=== PATIENT | female | born 1955 | race Caucasian/White ===

== ENCOUNTER 2019-05-27 19:08 | Emergency (ER) | payer OTHER ==
[~2019-05-27] VITALS: Ht 170.2 cm; Wt 118.8 kg
[2019-05-27 19:43] LABS: ABSOLUTE NEUTROPHILS 5.8 thou/uL (1.4-8.2); BASOPHILS 0.7 % (0.0-2.0); EOSINOPHILS 4.2 % (0.0-3.0); HEMATOCRIT 24.7 % (37.0-47.0); HEMOGLOBIN 8.3 gm/dL (12.0-15.0); LYMPHOCYTES 14.5 % (24.0-44.0); MCH 29.2 pg (26.0-34.0); MCHC 33.6 g/dL (28.0-37.0); MCV 86.9 fL (80.0-100.0); MONOCYTES 7.2 % (1.0-8.0); PLATELET COUNT 181 thou/uL (150-400); POLYS 73.4 % (36.0-66.0); RBC 2.84 mil/uL (4.20-5.00); RDW 21.4 % (10.5-14.5); WBC 7.9 thou/uL (4.0-11.0)
[2019-05-27 19:48] LABS: CALCIUM 9.3 mg/dL (8.5-10.1); CREATININE 0.7 mg/dL (0.6-1.0); POTASSIUM 4.7 mmol/L (3.5-5.1)
[2019-05-27 19:54] LABS: ALBUMIN 1.9 g/dL (3.4-5.0); DIRECT BILIRUBIN 0.2 mg/dL (<0.1-0.3); TOTAL BILIRUBIN 0.4 mg/dL (<0.1-1.0); TOTAL PROTEIN 7.8 g/dL (6.4-8.2)
[2019-05-27 19:59] LABS: URINE BILIRUBIN NEGATIVE (Negative); URINE BLOOD 3+ (Negative); URINE CLARITY CLEAR; URINE COLOR YELLOW; URINE GLUCOSE-RANDOM* NEGATIVE (Negative); URINE KETONES NEGATIVE (Negative); URINE LEUKOCYTES-REFLEX 3+ (Negative); URINE NITRITE-REFLEX NEGATIVE (Negative); URINE PROTEIN (DIPSTICK) NEGATIVE (Negative); URINE SPECIFIC GRAVITY <= 1.005 (1.005-1.035); URINE UROBILINOGEN 0.2 E.U./dl (0.2-1.0)
[2019-05-27 20:08] LABS: AMORPHOUS PHOSPHATES Few /LPF (None Seen); BACTERIA-REFLEX >30 Many /HPF (None Seen); CASTS None Seen /LPF (None Seen); SQUAMOUS None Seen /LPF (0-3); URINE RBC 3-10 Few /HPF (0-2); YEAST-REFLEX Present (None Seen)
--- NOTE | 2019-05-27 20:38 | NUR ---
VASCULAR ACCESS CALLED TO ER FOR MIDLINE PLACEMENT. PT'S LABS,HISTORY REVIEWED. EVY CEPHALIC WAS WIDELY PATENT WITH USG. 4FR POWER MIDLINE TRIMMED TO 15CM INSERTED TO 3CM EXTERNAL PER HOSPITAL POLICY AND PROCEDURE. RELEASED FOR IMMEDIATE USE PER PROTOCOL TO [facility]MAN BRAXTON. WALLET CARD GIVEN TO SEND BACK TO SNF WITH PT.
[2019-05-27] MEDS ORDERED: LEVAQUIN 7750 MG/152 IV (22:17)
[2019-05-28 00:30] VITALS: BP 104/68
--- NOTE | 2019-05-29 01:37 | NUR ---
LAB CALLED WITH CRITICAL LAB RESULT AT THIS TIME. BLOOD CULTURE POSITIVE. GRAM POSTIVE COCCI. WILL NOTIFY PROVIDER ON SHIFT
== END 2019-05-28 00:30 | disposition home or self-care (01) ==
LOC: ER 19:08
PROVIDERS: Emergency Medicine
DX: J81.0 Acute pulmonary edema (principal); N39.0 Urinary tract infection, site not specified
CPT/HCPCS: 27000

== ENCOUNTER 2019-07-09 00:33 | Inpatient (IN) | payer OTHER ==
[2019-07-09] VITALS (68 sets, daily range): BP systolic 89–137; BP diastolic 31–81
[~2019-07-09] VITALS: Ht 170.2 cm; Wt 93.3 kg
--- NOTE | ~2019-07-09 | EMS ---
[facility] [address] [place] [address] EMS Patient Care Report Name: JACK BREWER Room #: PRE [place]#: [id number] Admission: Attend Phys: Discharge: Date of : 59 Report #: [id number] THIS REPORT FOR: //name// Report Transmitted: 07/09/2019 00:41 EMS Care Summary [facility] MED-ACT Incident [id number] @ 07/08/2019 23:47 Incident Location [address] [place] [address] Patient JACK BREWER Female, 63 Years 1955 Patient Address [address] [place] [address] Patient History Tracheostomy, Patient Allergies No known allergies, Patient Medications Lorazepam, Levothyroxine, Metoclopramide, Amiodarone, Diltiazem, Eliquis, Ferrous Sulfate, Sertraline, Chief Complaint Low Sodium Disposition Transported No Lights/[place] Reason Breathing Problem Transported To [facility] Narrative On EMS arrival, pt found lying semi fowlers in bed with a vent attached to her [address] [address] EMS Patient Care Report Name: JACK BREWER Room #: PRE Caitlin.#: [id number] Admission: Attend Phys: Discharge: Date of : 59 Report #: [id number] trach. Staff reports that the pt started to have altered mental status earlier this evening. They report that at that time they nai labs on the pt and had just received the results showing a critically low sodium. Staff also reports that the pt's blood pressure has been low. They report that the pt is normally responsive, however no one on scene can elaborate any further than that. They report that the pt has been in this state for approximately 2 hours at this time. When asked about the pt history there was no one available that knew any medical history of this pt. Pt moved from her bed to the cot via sheet drag. Pt removed from vent and moved to BVM via trach tube for respirations. Pt transported to ED room 6. Pt transferred to ED bed via sheet drag and placed back on a vent at the hospital. Pt left with rails up and staff in attendance. Initial Vitals @00:22P: 122,BP: 119/65,SpO2: 100,WV Suspected: false @00:15P: 122,R: 12,BP: 121/79,EtCO2: 40,SpO2: 100, @23:59P: 125,R: 12,BP: 121/65,Pain: 0/10,GCS: 3,Glucose: 138,SpO2: 95,Revised Trauma: 8, Assessments @23:58MENTAL:Unresponsive,SKIN:Diaphoresis,HEENT:Neck/Airway: Other,Head/Face: No Abnormalities,LUNG SOUNDS:ABDOMEN:PELVIS//GI:Pelvis GUOther,EXTREMITIES:PULSE:NEURO:No Abnormalities, Impression Altered Mental Status Procedures @00:10Oxygen FlowRate: 15 Device: Bag Valve Mask (BVM) Response: UnchangedSucceeded@00:2212-Lead ECG Timeline 23:47,Call Received 23:47,Psap Call 23:47,Dispatched 23:49,En Route 23:54,On Scene 23:57,At Patient 23:59,BP: 121/65 M,PULSE: 125,RR: 12 R,SPO2: 95 Ox,ETCO2: ,B,PAIN: 0,GCS: 3, 00:10,Oxygen FlowRate: 15 Device: Bag Valve Mask (BVM) Response: UnchangedSucceeded, 00:15,BP: 121/79 M,PULSE: 122,RR: 12 R,SPO2: 100 Ox,ETCO2: 40 ,BG: ,PAIN: ,GCS: [address] [address] EMS Patient Care Report Name: JACK BREWER Room #: [facility] M.R.#: [id number] Admission: Attend Phys: Discharge: Date of : 59 Report #: [id number] , 00:17,Depart Scene 00:22,12-Lead ECG, 00:22,BP: 119/65 M,PULSE: 122,RR: R,SPO2: 100 Ox,ETCO2: ,BG: ,PAIN: ,GCS: , 00:26,At Destination 01:00,Call Closed Disclaimer v1.1 Copyright 2019 [employer] This EMS Care Summary contains data elements from the applicable legal record (which may be displayed differently). It is designed to provide pertinent information for the following purposes: continuity of care, clinical quality, and state data reporting. The complete legal record is available to ED staff and administrators of the receiving hospital in [facility]'s Patient Tracker. All data is provided "as is."
[~2019-07-09 00:33] MED LIST: LEVAQUIN 7750 MG/152 IV
[2019-07-09 00:59] LABS: BE(vivo) -5.8 mmol/L (-2 to +3); PCO2 40.7 mmHg (35.0-45.0); PO2 149.6 mmHg (80.0-100.0); sO2 98.7 % (92.0-98.0)
[2019-07-09 01:00] LABS: pH 7.309 (7.360-7.450)
[2019-07-09 01:09] LABS: HEMOGLOBIN 6.9 gm/dL (12.0-15.0); MCH 28.1 pg (26.0-34.0)
[2019-07-09 01:10] LABS: HEMATOCRIT 20.9 % (37.0-47.0); MCV 85.1 fL (80.0-100.0); PLATELET COUNT 192 thou/uL (150-400); RBC 2.45 mil/uL (4.20-5.00); WBC 23.9 thou/uL (4.0-11.0)
[2019-07-09 01:13] LABS: URINE BILIRUBIN NEGATIVE (Negative); URINE BLOOD 3+ (Negative); URINE CLARITY CLOUDY; URINE COLOR RED; URINE GLUCOSE-RANDOM* NEGATIVE (Negative); URINE KETONES NEGATIVE (Negative); URINE NITRITE-REFLEX NEGATIVE (Negative); URINE PROTEIN (DIPSTICK) 2+ (Negative); URINE SPECIFIC GRAVITY <= 1.005 (1.005-1.035); URINE UROBILINOGEN 0.2 E.U./dl (0.2-1.0)
[2019-07-09 01:25] LABS: URINE LEUKOCYTES-REFLEX 3+ (Negative)
[2019-07-09 01:26] LABS: ALBUMIN 1.8 g/dL (3.4-5.0); CALCIUM 9.7 mg/dL (8.5-10.1); CREATININE 1.3 mg/dL (0.6-1.0); DIRECT BILIRUBIN 0.9 mg/dL (<0.1-0.3); MAGNESIUM 2.2 mg/dL (1.8-2.4); POTASSIUM 5.6 mmol/L (3.5-5.1); TOTAL BILIRUBIN 1.1 mg/dL (<0.1-1.0); TOTAL PROTEIN 7.6 g/dL (6.4-8.2); TROPONIN-I 0.18 ng/mL (<0.06)
[2019-07-09 01:41] LABS: BACTERIA-REFLEX 1-9 Few /HPF (None Seen); CASTS None Seen /LPF (None Seen); CRYSTALS None Seen /LPF (None Seen); SQUAMOUS 0-3 Few /LPF (0-3); URINE RBC >20 Many /HPF (0-2); WBC CLUMPS Few (None Seen)
[2019-07-09 02:40] LABS: ABSOLUTE NEUTROPHILS 22.7 thou/uL (1.4-8.2)
[2019-07-09 02:41] LABS: ANISOCYTOSIS 1+; PLATELET ESTIMATE NORMAL; POIKILOCYTOSIS 1+
--- NOTE | 2019-07-09 03:30 | NUR ---
ADMIT: Pt admitted to ICU room 238 from ED. Pt originally from [facility], vent dependent with PEG tube and chronic dye, midline in place from previous clinic visit in May. Pt very lethargic, opens eyes and withdraws slightly to noxious stimuli. Monitor a-fib with RVR rates 90-130's. Breath sounds extremely coarse throughout all gross, suctioning thick yellow sputum. Area of breakdown on left heel with eschar and area of possible yeast rash on buttocks. Sat 100% on FiO2 50%.
[2019-07-09 03:31] LABS: % SATURATION 4 % (20-39); IRON 12 ug/dL (50-170); TIBC 295 ug/dL (250-450)
--- NOTE | 2019-07-09 07:26 | EKG ---
[address] [place] [address] ELECTROCARDIOGRAM REPORT Name: JACK BREWER Room #: 238-P ADM IN M.R.#: [id number] Admission: 07/09/19 Attend Phys: Vinod Lopez MD Discharge: Date of : 59 Report #: [id number] THIS REPORT FOR: //name// [facility] ED Test Date: 2019-07-09 Test Time: 00:44:56 Pat Name: JACK BREWER Department: Room: 238 Gender: F Contracts Representative: DEEJAY : 1955 Requested By: Jose Miguel Lawrence Order Number: [id number] MD: Rodrigo Ball Measurements Intervals [place] Rate: 115 P: RI: QRS: -3 QRSD: 107 T: 170 QT: 314 QTc: 435 Interpretive Statements Atrial flutter with variable AV block Poor R wave progression Nonspecific ST and T wave abnormality No previous ECG available for comparison Electronically Signed On 07-09-2019 7:26:18 CDT by Rodrigo Ball [email or web address] <ELECTRONICALLY SIGNED> By: Rodrigo Ball MD, [facility] 07/09/19 0726 D: 0943 Rodrigo Ball MD, FACC /EPI
--- NOTE | 2019-07-09 09:22 | 2DMMODE ---
[facility] [address] [place] [address] 2 D/M-MODE ECHOCARDIOGRAM Name: JACK BREWER Room #: 238-P [facility] IN ..#: [id number] Admission: 07/09/19 Attend Phys: Vinod Lopez MD Discharge: Date of : 59 Report #: [id number] THIS REPORT FOR: //name// APPROVED REPORT Study performed: 07/09/2019 07:58:07 EXAM: Comprehensive 2D, Doppler, and color-flow Echocardiogram Patient Location: ICU Room #: [facility] Status: routine BSA: 2.17 HR: 135 bpm BP: 129/62 mmHg Rhythm: Tachycardia Other Information Study Quality: Adequate Technically limited study due to inability to position patient, patient on ventilator. Indications Congestive Heart Failure Diabetes Atrial Fibrillation Hypertension/HDD 2D Dimensions RVDd: 30.15 mm IVSd: 10.89 (7-11mm) LVOT Diam: 20.23 (18-24mm) LVDd: 45.37 mm PWd: 9.51 (7-11mm) Ascending Ao: 29.81 (22-36mm) LVDs: 37.12 (25-40mm) Aortic Root: 32.26 mm IVC: 18.00 mm Volumes Left Atrial Volume (Systole) Single Plane 4CH: 33.18 mL Single Plane 2CH: 59.84 mL LA ESV Index: 22.00 mL/m2 Aortic Valve AoV Peak Luis E.: 1.88 m/s AO Peak Gr.: 14.14 mmHg LVOT Max P.76 mmHg LVOT Max V: 1.30 m/s ABDIRASHID Vmax: 2.22 cm2 [facility] [address] [place] [address] 2 D/M-MODE ECHOCARDIOGRAM Name: JACK BREWER Room #: 238-P ADM IN [facility]#: [id number] Admission: 07/09/19 Attend Phys: Vinod Lopez MD Discharge: Date of : 59 Report #: [id number] Mitral Valve MV Decel. Time: 157.53 ms MV E Max Luis E.: 1.17 m/s IVRT: 99.19 ms Pulmonary Valve PV Peak Luis E.: 1.17 m/s PV Peak Gr.: 5.44 mmHg Tricuspid Valve TR Peak Luis E.: 2.74 m/s RAP Estimate: 10.00 mmHg TR Peak Gr.: 29.94 mmHg PA Pressure: 40.00 mmHg Left Ventricle The left ventricle is normal size. There is global hypokinesis of the left ventricle. There is normal left ventricular wall thickness. Left ventricular systolic function is moderately decreased. LVEF is 35-40%. This study is not technically sufficient to allow evaluation of the LV diastolic function. Right Ventricle The right ventricle is normal size. Right ventricle is mildly hypokinetic. Atria The left atrium size is normal. Right atrium is at the upper limits of normal. Aortic Valve Mild aortic valve sclerosis, trileaflet. No aortic regurgitation is present. There is no aortic valvular stenosis. Mitral Valve Mitral valve leaflets are mildly thickened. Moderate mitral regurgitation No evidence of mitral valve stenosis. Tricuspid Valve The tricuspid valve is normal in structure. Trace tricuspid regurgitation. PAP is estimated at 40 mmHg. Pulmonic Valve The pulmonary valve is normal in structure. There is no pulmonic valvular regurgitation. Great Vessels [facility] [address] [place] [address] 2 D/M-MODE ECHOCARDIOGRAM Name: JACK BREWER Room #: 238- ADM IN M.R.#: [id number] Admission: 07/09/19 Attend Phys: Vinod Lopez MD Discharge: Date of : 59 Report #: [id number] The aortic root is normal in size. IVC is normal in size and collapses <50% with inspiration. Pericardium There is no pericardial effusion. Small to moderate left sided pleural effusion noted. <Conclusion> Left ventricular systolic function is moderately decreased. There is global hypokinesis of the left ventricle. LVEF is 35-40%. Mild aortic valve sclerosis, trileaflet. No aortic regurgitation or stenosis Mitral valve leaflets are mildly thickened. Moderate mitral regurgitation Trace tricuspid regurgitation. Pulmonary artery pressure estimated at 40 mmHg. There is no pericardial effusion. <ELECTRONICALLY SIGNED> By: Rodrigo Ball MD, [facility] 07/09/19921 1 1 Rodrigo Ball MD, [facility] /INF
[2019-07-09 09:45] LABS: URINE BLOOD 3+ (Negative); URINE CLARITY TURBID; URINE COLOR RED; URINE GLUCOSE-RANDOM* NEGATIVE (Negative); URINE KETONES TRACE (Negative); URINE LEUKOCYTES 3+ (Negative); URINE NITRITE POSITIVE (Negative); URINE PROTEIN (DIPSTICK) 3+ (Negative)
[2019-07-09 09:46] LABS: ICTOTEST (BILI CONFIRMATORY) Negative (Negative); URINE BILIRUBIN NEGATIVE (Negative); URINE RBC >20 Many /HPF (0-2)
[2019-07-09 09:47] LABS: AMORPHOUS URATES Few /LPF (None Seen); BACTERIA 1-9 Few /HPF (None Seen); CASTS None Seen /LPF (None Seen); SQUAMOUS None Seen /LPF (0-3)
[2019-07-09 10:04] LABS: URINE PROTEIN-RANDOM* 1084.3 mg/dL (<11.9)
--- NOTE | 2019-07-09 10:16 | NUR ---
Nutrition: Pts usual regimen if Glucerna 1.2 at 55 mL/hr. Considering hyperkalemia, REC use of Nepro formula at 35 mL/hr goal rate for now. When labs stabilize, will re-evaluate formula choice to best meet needs.
--- NOTE | 2019-07-09 11:35 | NUR ---
WOUND CARE CONSULT; ASSESSMENT COMPLETED WITH STAFF NURSE. THE LEFT HEEL IS COVERED WITH A HARD COVERING; ESCHAR VS CALLOUS/OLD BLISTERED AREA WHICH IS STABLE AT THIS TIME. THE BILATERAL BUTTOCKS AND PERINEAL/PERIRECTAL AREAS HAVE S/S CONSISTANT WITH A FUNGAL RASH VS PRESSURE. ALL THE TISSUE IS BLANCHABLE. NO DRAINAGE. THE PATIENT IS CURRENTLY USING NYSTATIN PER REVIEW RN. RECOMMENDATIONS; 1-LEFT HEEL PAINT WITH BETADINE DAILY. 2-BILATERAL BUTTOCKS APPLIANCE SERVICE REPRESENTATIVE;USE INTERDRY TO SKIN FOLDS DAILY. RN PRESENT
--- NOTE | 2019-07-09 13:13 | NUR ---
CONSULTED TO PLACE A PICC FOR A PATIENT NEEDING ADDITIONAL ACCESS. ORDER NOTED. STAFF UNABLE TO REACH FAMILY AND LINE NEEDED ASASP. MEDICAL NECESSITY. A #5F TRIPLE LUMEN PICC ATTEMPTED PER HOSPITAL POLICY AFTER A BEDSIDE TIMEOUT WAS COMPLETE. RIGHT CEPHALIC DEEP AND HARD TO VISUALIZE. AFTER LIDOCAINE SQ THE VEIN VASOSPASMED AND UNABLE TO ADVANCE LINE. DISCUSSED IJ PLACEMENT WITH THE LANDFILL ATTENDANT- A NEW STERILE KIT OBTAINED AND A #6F TRIPLE LUMEN POWER INJECTABLE JACC CENTRAL LINE WAS PLACED IN THE LEFT JUGULAR VEIN PER HOSPITAL POLICY. LINE WAS 25CM / ADVANCED TO 20CM. A STAT CHEST XRAY - LINE CONFIRMED AND RELEASED FOR USE
[2019-07-09 16:00] LABS: CALCIUM 9.4 mg/dL (8.5-10.1); CREATININE 1.2 mg/dL (0.6-1.0); POTASSIUM 4.9 mmol/L (3.5-5.1)
[2019-07-09 16:04] LABS: ALBUMIN 1.6 g/dL (3.4-5.0); PHOSPHORUS 3.2 mg/dL (2.5-4.9)
--- NOTE | 2019-07-09 16:41 | EKG ---
[address] [address] ELECTROCARDIOGRAM REPORT Name: JACK BREWER Room #: 238-P ADM IN M.R.#: [id number] Admission: 07/09/19 Attend Phys: Vinod Lopez MD Discharge: Date of : 59 Report #: [id number] THIS REPORT FOR: //name// [facility] Test Date: 2019-07-09 Test Time: 09:05:45 Pat Name: JACK BREWER Department: Room: 238 Gender: F Manager Art: GWEN : 1955 Requested By: Angelika Brooks Order Number: [id number] MD: Bebeto De Paz Measurements Intervals Street Rate: 132 P: 123 ND: 127 QRS: 31 QRSD: 102 T: 125 QT: 289 QTc: 428 Interpretive Statements Atrial flutter. Nonspecific repol abnormality, lateral leads Compared to ECG 07/09/2019 00:44:56 Electronically Signed On 07-09-2019 16:41:38 CDT by Bebeto De Paz [email or web address] <ELECTRONICALLY SIGNED> By: Bebeto De Paz MD 07/09/19 1641 4 4 Bebeto De Paz MD /DANISH
--- NOTE | 2019-07-09 16:44 | NUR ---
Chart reviewed and case discussed with the care team. Pt is currently in the ICU. She is not responsive. She is a chronic vent patient that was transfered to [facility] from [facility] as she was not weanable. Very limited history is available. Message left for the [facility] socialworker, Yolie. Nursing has attempted x three to reach her son and only noted next of kin Osman. They have left three seperate messages on his voicemail to contact the hospital. [place] plan at this time is [place].The [facility] liason will be by tomorrow to get an update. Me associate merchandise planner has faxed them her admission h/p. Will follow.
--- NOTE | 2019-07-09 16:48 | NUR ---
PT IS FROM [facility] FAXED H/P TO FACILITY SPOKE WITH VILMA IN ADM SHE RECEIVED UPDATE. DCP TO FOLLOW.
--- NOTE | 2019-07-09 17:01 | NUR ---
ASSUMED CARE AT 0700, PATIENT UNRESPONSIVE WITH GCS OF 6. PATIENT DOES GRIMICE TO PAINFUL STIMULI. PATIENT IN AFIB RVR THIS AM, CARDIOLOGY IS AWARE AND DID GIVE ME ORDERS TO START AMIO DRIP WITH BOLUS TO BE GIVEN. NO RESPONSE TO THE AMIO WITH RATES STILL IN THE 130'S. DR ORTEGA NOTIFIED AND ORDER FOR IV LOPRESSOR RECIEVED. PATIENT HAD A SLIGHT RESPONSE TO THAT DROPPING HER HR TO THE 1TEENS TO 120'S. BP STABLE. TRIED TO CONTACT PATIENTS SON MULTIPLE TIMES TO GET CONSENTS SIGNED FOR CENTRAL LINE PLACEMENT I WAS ONLY ABLE TO REACH SONS VOICEMAIL. 2 MESSAGES LEFT WITH NO CALL BACK. DRESSING PLACED TO PATIENT LEFT HEEL PER DR CARMONA. NO FURTHER QUESTIONS AT THIS TIME. WILL CONTINUE TO MONITOR AND CARE PER PLAN OF CARE.
[2019-07-10] VITALS (39 sets, daily range): BP systolic 96–145; BP diastolic 53–95
[2019-07-10 05:02] LABS: HCO3 21.2 mmol/L (22.0-26.0); PCO2 44.7 mmHg (35.0-45.0); sO2 56.9 % (92.0-98.0)
[2019-07-10 05:04] LABS: PO2 33.1 mmHg (80.0-100.0); pH 7.294 (7.360-7.450)
[2019-07-10 05:30] LABS: MCH 27.9 pg (26.0-34.0); MCHC 33.2 g/dL (28.0-37.0); MCV 84.1 fL (80.0-100.0); RBC 2.08 mil/uL (4.20-5.00); RDW 17.2 % (10.5-14.5); WBC 11.2 thou/uL (4.0-11.0)
[2019-07-10 05:31] LABS: BE(vivo) -2.2 mmol/L (-2 to +3); HCO3 21.3 mmol/L (22.0-26.0); PCO2 30.8 mmHg (35.0-45.0); pH 7.458 (7.360-7.450); sO2 99.2 % (92.0-98.0)
[2019-07-10 05:56] LABS: HEMOGLOBIN 5.8 gm/dL (12.0-15.0)
[2019-07-10 05:57] LABS: HEMATOCRIT 17.5 % (37.0-47.0)
[2019-07-10 06:13] LABS: ALBUMIN 1.5 g/dL (3.4-5.0); CALCIUM 9.1 mg/dL (8.5-10.1); CREATININE 1.1 mg/dL (0.6-1.0); PHOSPHORUS 3.6 mg/dL (2.5-4.9)
--- NOTE | 2019-07-10 08:35 | HC ---
[facility] [place] [address] CONSULTATION Name: JACK BREWER Room #: 238-P ADM IN M.R.#: [id number] Admission: 07/09/19 Attend Phys: Vinod Lopez MD Discharge: Date of : 59 Report #: [id number] THIS REPORT FOR: //name// CC: Vinod Carreon DATE OF SERVICE: 07/09/2019 REASON FOR CONSULTATION: Hyponatremia and hyperkalemia. REASON FOR PRESENTATION: Altered mental status. HISTORY OF PRESENT ILLNESS: Those were obtained from the medical records as the patient is not able to provide me with any history at present. She is a resident of an LTAC facility. She had previous history of chronic respiratory failure, maintained on the vent. She is also known to have AFib, hypothyroidism, hypertension, history of heart failure with unknown ejection fraction. She has muscular dystrophy. She receives her nutrition through the PEG tube. Nursing facility staff reported decreased level of consciousness. Laboratory values were obtained on the patient and those revealed that the patient has hyponatremia and hyperkalemia. Most recently, the labs from the revealed a sodium value of 114 and a potassium value of 5.8. Prior to that and on 06/24/2019, her potassium was 5.4 and her sodium was 135. The patient's white blood cell counts from yesterday were elevated at 28,000. The patient was transferred to our facility to further evaluate. I am being consulted to manage her electrolyte issues. PAST MEDICAL HISTORY: Obtained from the medical charts include the followin. Chronic respiratory failure, maintained on the vent. 2. Tracheostomy. 3. Diabetes mellitus. 4. Atrial fibrillation, maintained on Eliquis. 5. Hypertension. 6. Hypothyroidism. 7. Status post cholecystectomy. 8. Status post PEG tube. 9. Status post tracheostomy. SOCIAL HISTORY: She is a resident of an LTAC facility. Unable to verify alcohol or substance abuse. FAMILY HISTORY: Unable to obtain given the patient's mental status. REVIEW OF SYSTEMS: Unable to obtain given the patient's mental status. MEDICATIONS: Currently, the patient is maintained on amiodarone, vancomycin and [facility] [address] [place] [address] CONSULTATION Name: JACK BREWER Room #: 238-P ADM IN [facility].#: [id number] Admission: 07/09/19 Attend Phys: Vinod Lopez MD Discharge: Date of : 59 Report #: [id number] Zosyn. ALLERGIES: None. PHYSICAL EXAMINATION: VITAL SIGNS: She is tachycardic on the vent. Pulse is 135. Blood pressure is 117/56. HEAD AND NECK: Tracheostomy. CHEST: Decreased air entry bilaterally. CARDIOVASCULAR: Distant. ABDOMEN: Diffuse abdominal wall edema. LOWER EXTREMITIES: Diffuse lower extremity edema. SKIN: The patient has sacral wounds, ankle wounds. LABORATORY DATA: Reviewed. Sodium is 118, potassium is 5.6, chloride is 86, BUN is 75, creatinine is 1.3. Chest x-ray is consistent with pulmonary edema. ASSESSMENT: 1. Acute kidney injury. 2. Hyponatremia. 3. Hyperkalemia. 4. Sepsis. 5. Recent urinary tract infection with an extended-spectrum beta-lactamase. 6. Atrial fibrillation. 7. Anemia. 8. Diabetes mellitus. PLAN: 1. We will initiate the appropriate workup for the patient's presentation. 2. Septic workup had been initiated. 3. Appropriate antibiotic therapy. 4. Initiate diuresis. 5. Treat her hyperkalemia medically. 6. Obtain a cardiac echo. 7. Obtain an ID consultation. 8. Wound care. 9. We will continue to follow. <ELECTRONICALLY SIGNED> By: Junior Mullins MD 07/10/19 0835 0833 1213 Junior Mullins MD /nt
--- NOTE | 2019-07-10 11:30 | NUR ---
ATTEMPTED TO REACH SON ROMELIA AT 0650, 0720, 0824 AND 1000. BROTHER AT BEDSIDE AND WAS ABLE TO REACH HIM AND THEN ABLE TO DISCUSS POC WITH HIM.
--- NOTE | 2019-07-10 16:01 | NUR ---
FAXED CLINICAL UPDATE TO [facility] RECEIVED CONFIRMATION WILL F/U WITH VILMA IN ADM ON SATURDAY. DCP TO FOLLOW.
--- NOTE | 2019-07-10 16:05 | HC ---
[facility] [place] [address] CONSULTATION Name: JACK BREWER Room #: 238-[facility] IN M.R.#: [id number] Admission: 07/09/19 Attend Phys: Vinod Lopez MD Discharge: Date of : 59 Report #: [id number] THIS REPORT FOR: //name// CC: Vinod Carreon DATE OF SERVICE: 07/09/2019 INFECTIOUS DISEASE CONSULTATION REASON FOR CONSULTATION: Evaluate septic shock. HISTORY OF PRESENT ILLNESS: The patient is a 63-year-old with muscular dystrophy, advanced and ventilatory dependent with chronic respiratory failure. Also has diabetes, atrial fibrillation, obesity, congestive heart failure, neurogenic bladder. Over the last 24 hours, she has had decreased mental status. She had previously been treated for urinary tract infection in the previous 2 weeks. She is positive for MRSA and ESBL gram-negative in her urine. She completed a course of antibiotics. Initially had hemorrhagic cystitis and a 3-way catheter was used to irrigate her bladder. Today, she had decreased mental status and developed sepsis with elevated lactate and white count. Empirically started on vancomycin and Zosyn. Placed in the Intensive Care Unit. Receiving IV fluids and full ventilatory support. The patient was unable to give any details. She was encephalopathic. ALLERGIES: None known. MEDICATIONS: As noted on her MAR, now including vancomycin and Zosyn. She had previously been on Levaquin. PAST MEDICAL HISTORY: Muscular dystrophy with advanced disease, ventilatory dependent, chronic Hu catheter, PEG tube, atrial fibrillation, hypothyroidism, recurring episodes of sepsis with previous healthcare-associated pneumonia and urinary tract infections. FAMILY HISTORY: Noncontributory. SOCIAL HISTORY: Nonsmoker, no significant alcohol intake. PHYSICAL EXAMINATION: VITAL SIGNS: Temperature 99 degrees max, now afebrile, heart rate in the 130s with atrial fibrillation, rapid ventricular response, blood pressure 101/53, FiO2 of 50% on the ventilator. GENERAL: She had an indwelling Hu catheter with bloody urine. She had loose stool present. Perineal yeast with pressure ulcer over the left heel, most [facility] [address] [place] [address] CONSULTATION Name: JACK BREWER Room #: 238- ADM IN M.R.#: [id number] Admission: 07/09/19 Attend Phys: Vinod Lopez MD Discharge: Date of : 59 Report #: [id number] notable with eschar. No surrounding cellulitis or fluctuance. Left IJ catheter in place. She came in with a left upper extremity midline catheter. HEENT: Eyes, without scleral icterus. Pupils were reactive to light. Mouth without mucositis. Tracheostomy with minimal surrounding drainage. Mild erythema. LUNGS: Coarse bilaterally. HEART: Irregular, tachycardia. ABDOMEN: Obese. Mildly distended. PEG site was without drainage. No appreciable mass or hepatosplenomegaly. GENITOURINARY: External genitalia with yeast dermatitis. RECTAL: Not performed. EXTREMITIES: With 2+ edema and generally weak. Weakness was symmetric. Mood was obtunded. LABORATORY STUDIES: Urinalysis with 16-25 wbc's, greater than 20 rbc's, 1-9 bacteria. Hemoglobin 6.9, platelet 192,000, white count 23.9, 77% segs and 18% bands. BNP 51,000. Lactate 2.2, sodium 118, potassium 5.6, bicarbonate 24, creatinine 1.3, alkaline phosphatase 226. AST, ALT normal. Bilirubin 1.1, albumin 1.8. Blood, urine and sputum cultures pending. Chest x-ray, vascular congestion. CT of the head, bilateral mastoid opacification with middle ear effusions and ethmoid sinusitis. IMPRESSION: 1. Septic shock with respiratory failure. 2. Congestive heart failure. 3. Atrial fibrillation with rapid ventricular response. 4. Urinary tract infection, hemorrhagic in nature. 5. Hyponatremia. 6. Anemia in the setting of diabetes. 7. Advanced muscular dystrophy. 8. Sinusitis both ethmoids and mastoids. Also, possible source would include left upper extremity central catheter. RECOMMENDATIONS: We will continue vancomycin and Zosyn adjusted for renal insufficiency. Discontinue midline catheter. Change Hu catheter to 3-way for irrigation of the hemorrhagic cystitis and blood clots. Await cultures of blood, urine and sputum. Continue full ICU support. <ELECTRONICALLY SIGNED> By: Daren Gao MD 07/10/19 1605 2333 0243 Daren Gao MD /nt
[2019-07-10 16:54] LABS: % SATURATION 17 % (20-39); IRON 32 ug/dL (50-170); TIBC 185 ug/dL (250-450)
[2019-07-10 17:21] LABS: FOLIC ACID 28.2 ng/mL (8.6-58.9)
[2019-07-10 17:52] LABS: HEMATOCRIT 22.8 % (37.0-47.0); HEMOGLOBIN 7.6 gm/dL (12.0-15.0)
--- NOTE | 2019-07-10 19:15 | NUR ---
PATIENT RESTING QUIETLY ON THE VENT, VENTICULAR RESPONSE IMPROVED AFTER UNIT OF PRBC'S AND DIRUESIS, LESS GENERALIZED EDEMA. PUPILS ARE BRISK NOW. WILL OCC OPEN EYES. REASSURANCE GIVEN TO PATIENT AND FAMILY
[2019-07-11] VITALS (23 sets, daily range): BP systolic 108–163; BP diastolic 55–90
[2019-07-11 05:17] LABS: HEMATOCRIT 22.1 % (37.0-47.0); HEMOGLOBIN 7.4 gm/dL (12.0-15.0); MCH 27.3 pg (26.0-34.0); MCHC 33.6 g/dL (28.0-37.0); MCV 81.4 fL (80.0-100.0); RBC 2.72 mil/uL (4.20-5.00); RDW 19.4 % (10.5-14.5); WBC 11.3 thou/uL (4.0-11.0)
[2019-07-11 05:22] LABS: ALBUMIN 1.7 g/dL (3.4-5.0); CALCIUM 9.9 mg/dL (8.5-10.1); CREATININE 1.2 mg/dL (0.6-1.0); PHOSPHORUS 3.3 mg/dL (2.5-4.9)
[2019-07-11 05:41] LABS: POTASSIUM 2.6 mmol/L (3.5-5.1)
[2019-07-11 06:04] LABS: CALCIUM 10.1 mg/dL (8.5-10.1); CREATININE 1.1 mg/dL (0.6-1.0)
[2019-07-11 06:06] LABS: POTASSIUM 2.7 mmol/L (3.5-5.1)
--- NOTE | 2019-07-11 06:47 | NUR ---
RECEIVED REPORT AND ASSUMED PATIENT CARE AT 1900. PATIENT DOESN'T FOLLOW COMMANDS BUT WILL NOD HER HEAD NO AND TRACK WITH EYES. PATIENT NOTED TO BE IN A-FLUTTER ON THE MONITOR AND SBP TRENDED UP DURING THIS SHIFT. NO ACUTE EVENTS OCCURED DURING THIS SHIFT.
--- NOTE | 2019-07-11 17:34 | NUR ---
PATIENT MORE RESPONSIVE TODAY, MONITOR REMAINS A FLUTTER WITH INTERMITTENT A FIB WITH A CONTROLLED VENTRICULAR RESPONSE. WILL AROUSE TO VERBAL STIMULI MOUTHS WORDS. REMAINS ON THE POTASSIUM PROTOCOL FOR REPEAT POTASSIUM OF 3.2. TOLERATING TUBE FEEDING WITH MINIMUAL RESIDUALS. URINE OUTPUT ADEQUATED VIA MORAN.
[2019-07-12] VITALS (24 sets, daily range): BP systolic 94–127; BP diastolic 50–92
--- NOTE | 2019-07-12 04:55 | NUR ---
RECEIVED REPORT FROM IRAIS ANAYA AND ASSUMED PATIENT CARE AT 1900. PATIENT CONTINUES TO NOT FOLLOW COMMANDS UPON REQUEST BY SQUEEZING HANDS BUT WILL MOVE BUE RANDOMLY. PATIENT WILL TRACK WITH EYES. PATIENT VS REMAINED STABLE AND PATIENT REMAINED IN A-FIB/A-FLUTTER THROUGHOUT THIS SHIFT. NO ACUTE EVENTS OCCURRED. HOURLY ROUNDING COMPLETED AND PATIENT MONITORED CLOSELY DURING THIS SHIFT.
[2019-07-12 05:27] LABS: ALBUMIN 1.6 g/dL (3.4-5.0); CALCIUM 9.9 mg/dL (8.5-10.1); CREATININE 1.1 mg/dL (0.6-1.0); PHOSPHORUS 3.1 mg/dL (2.5-4.9); POTASSIUM 4.2 mmol/L (3.5-5.1)
--- NOTE | 2019-07-12 10:59 | NUR ---
Pt was awake and alert. Eyes follwed this nurse's finger but could not move any limbs on commands. Afebrile. Coarse LS. Vent on via trach. A.flutter/A. fib w/ HR 80s. Generalized edema. PEG tube in place w/ TF @35ml/hr. L Triple IJ in place. No maintenance fluid is running. LE was elevated w/ boots. Will continue to monitor.
[2019-07-13] VITALS (28 sets, daily range): BP systolic 74–130; BP diastolic 40–69
[2019-07-13 06:11] LABS: HEMATOCRIT 22.2 % (37.0-47.0); HEMOGLOBIN 7.4 gm/dL (12.0-15.0); MCH 27.5 pg (26.0-34.0); MCHC 33.4 g/dL (28.0-37.0); MCV 82.1 fL (80.0-100.0); RBC 2.71 mil/uL (4.20-5.00); RDW 19.6 % (10.5-14.5); WBC 9.7 thou/uL (4.0-11.0)
--- NOTE | 2019-07-13 06:15 | NUR ---
Received report from IRAIS Altamirano and assumed patient care at 1900. Patient continues to be in A-fib/A-flutter on the monitor. Patient very drowsy for the greatest part of this shift. VS remained stable and no acute events occurred. Patient monitored closely.
[2019-07-13 06:33] LABS: ALBUMIN 1.7 g/dL (3.4-5.0); CALCIUM 10.6 mg/dL (8.5-10.1); CREATININE 1.2 mg/dL (0.6-1.0); PHOSPHORUS 2.7 mg/dL (2.5-4.9); POTASSIUM 4.3 mmol/L (3.5-5.1)
--- NOTE | 2019-07-13 09:27 | NUR ---
Renal function and electrolytes have stabilized, recommend change tube feed formula back to pts usual formula of glucerna 1.2 at 55ml/hr
--- NOTE | 2019-07-13 13:34 | NUR ---
WOUND CARE FOLLOW UP; NO CHANGES SINCE LAST ASSSESSMENT. THE HEEL IS STABLE NO DRAINAGE AND THE FUNGAL RASH HAS NOT IMPROVED. WE WILL TRY ANTIFUNGAL CREAM DAILY/PRN. DISCUSSED WITH IRAIS
--- NOTE | 2019-07-13 15:31 | NUR ---
FAXED CLINICAL UPDATE TO [facility] SPOKE WITH VILMA IN ADM SHE RECEIVED UPDATE AND WILL FOLLOW.
--- NOTE | 2019-07-13 18:49 | NUR ---
assumed care of pt at 0700, pt is gcs of 9, does not seem to be in pain. tube feeding changed to glucerna and pt tolerating well. pt with orders to transfer out of ICU, waiting for bed assignment.
[2019-07-14] VITALS (30 sets, daily range): BP systolic 72–108; BP diastolic 21–68
--- NOTE | 2019-07-14 02:00 | NUR ---
Pt is hypotensive. BP in 80's with MAP40's-50's. Notified FRANK Whitaker gas station supervisor. Order IVF bolus x 1.
[2019-07-14 05:32] LABS: CALCIUM 10.3 mg/dL (8.5-10.1); CREATININE 1.2 mg/dL (0.6-1.0); POTASSIUM 4.7 mmol/L (3.5-5.1)
--- NOTE | 2019-07-14 07:00 | NUR ---
Pt remains very drowsy and lethargic this am. BP has improved after receiving NS bolus. No changes of other conditions.
--- NOTE | 2019-07-14 21:22 | NUR ---
Late entry for 1149. Metoprolol 5 mg given IV for heart rate 120-130's. Systolic blood pressure marginal-Paige Turner and Lenin notified and aware. Dr Turner adjusted cardiac medications-see emar.
[2019-07-15] VITALS (37 sets, daily range): BP systolic 78–126; BP diastolic 50–83
[2019-07-15 06:16] LABS: HEMOGLOBIN 7.5 gm/dL (12.0-15.0); MCHC 32.5 g/dL (28.0-37.0); MCV 83.1 fL (80.0-100.0); RBC 2.76 mil/uL (4.20-5.00); RDW 19.5 % (10.5-14.5); WBC 10.9 thou/uL (4.0-11.0)
[2019-07-15 06:24] LABS: CALCIUM 10.5 mg/dL (8.5-10.1); CREATININE 1.2 mg/dL (0.6-1.0); POTASSIUM 3.9 mmol/L (3.5-5.1)
--- NOTE | 2019-07-15 06:50 | NUR ---
No significant changes observed through the night. PRN fentanyl given for breakthrough restlessness and grimacing with desired effect achieved. Levophed gtt turned off and BP remains stable. Tolerating TF with minimal residuals and large amount of urine output for the shift. Am lab results noted, continue with POC.
--- NOTE | 2019-07-15 11:14 | NUR ---
WOUND CARE F/U; THE LEFT HEEL WAS ASSESSED TODAY. THIS AREA IS UNCHANGED AND STABLE. THE RASH ON THE BUTTOCKS IS BEING MANAGED MEDICALLY WITH NYSTATIN AND ANTIFUNGAL CREAM. RECOMMENDATIONS; CONTINUE CURRENT TREATMENT. DISCUSSED WITH IRAIS
[2019-07-16] VITALS (30 sets, daily range): BP systolic 88–161; BP diastolic 59–95
[2019-07-16] MEDS ORDERED: LANTUS SOL100 UNIT/1 SUBQ (04:05)
[2019-07-16] MEDS ORDERED: PACERONE 200 M200 M1 PER TUBE (04:08)
[2019-07-16] MEDS ORDERED: ELIQUIS5 MG PER TUBE (04:08)
[2019-07-16] MEDS ORDERED: FERROUS SU220 MG/52 PER TUBE (04:10)
[2019-07-16] MEDS ORDERED: GAVILAX17 GM PER TUBE (04:15)
[2019-07-16] MEDS ORDERED: SYNTHROID200 MCG PER TUBE (04:17)
[2019-07-16] MEDS ORDERED: SYNTHROID50 MCG PER TUBE (04:17)
[2019-07-16] MEDS ORDERED: SERTRALINE HCL50 MG PER TUBE (04:21)
[2019-07-16] MEDS ORDERED: VITCB500GO PER TUBE (04:22)
[2019-07-16] MEDS ORDERED: CARDIZEM30 MG PER TUBE (04:23)
[2019-07-16] MEDS ORDERED: MAPAP500 MG/15 PER TUBE (04:26)
--- NOTE | 2019-07-16 06:09 | NUR ---
RECEIVED REPORT FROM IRAIS EPPERSON AND ASSUMED PATIENT CARE AT 1900. PATIENT STILL DOES NOT FOLLOW COMMANDS BUT WILL TRACK WITH EYES AND MOVE UPPER EXTREMITIES SPONTANEOUSLY AND SHOW TREMORS IN THE LOWER EXTREMITIES. PATIENT'S HR SUSTAINED TO 130-150'S AND DR. BROWN WAS NOTIFIED. RECEIVED ORDERS TO PLACE PATIENT BACK ON AN AMIODARONE DRIP AT 1 MG/MIN. PATIENT VERY ANXIOUS AND EXPRESSING SIGNS OF PAIN. PATIENT GIVEN FENTANYL ORDERED. NO OTHER ACUTE EVENTS OCCURRED DURING THIS SHIFT. PATIENT MONITORED CLOSELY.
--- NOTE | 2019-07-16 12:32 | NUR ---
ON THE VENT PER TRACH. AWAKENS AND TRACKS BUT IS NOT FOLLOWING COMMANDS. NO SIGNS OF DISTRESS NOTED. ON AMIO GTT FOR A-FIB. TOLERATING TUBEFEEDING W/O RESIDUALS. FMS AND MORAN IN PLACE. CONSULT CALLED TO DR. MAYFIELD, PER OFFICE MD IS OUT OF TOWN NEXT FEW DAYS AND WILL SEE PATIENT ON SATURDAY. WILL CONTINUE WITH POC.
--- NOTE | 2019-07-16 16:39 | NUR ---
Case discussed with the care team. The attending was able to speak with the pt's son via phone. Poor prognosis and palliative care/hospice discussed. Pt's son to discuss with other family members. Nursing reports pt's son and dtr as well as a brother have visited the pt this week. Will remain available for support and needed. Dr. Mireles consult but not available until Saturday.
--- NOTE | 2019-07-16 18:28 | NUR ---
DR. DAWKINS ABLE TO GET A HOLD OF PATIENT'S SON ON THE PHONE AND PER MD, SON WILL TRY TO GET A HOLD OF THE SISTER AND GET BACK WITH MD REGARDING POC.
[2019-07-17] VITALS (52 sets, daily range): BP systolic 64–149; BP diastolic 29–125
--- NOTE | 2019-07-17 05:45 | NUR ---
RECEIVED REPORT FROM IRAIS SHARPE AND ASSUMED PATIENT CARE AT 1900. PATIENT IS MORE ALERT TODAY BUT STILL DOES NOT FOLLOW COMMANDS. PATIENT REMAINS ON AMIODARONE GTT. VS REMAIN STABLE AND NO ACUTE EVENTS OCCURRED. PATIENT MONITORED CLOSELY THROUGHOUT THIS SHIFT.
--- NOTE | 2019-07-17 12:35 | NUR ---
FOLLOWING FOR DC PLANNING. SPOKE WITH DR. DAWKINS THIS AM. HE SPOKE WITH PT'S SON ROMELIA BY PHONE THIS AM AND ROMELIA AND FAMILY AGREEABLE TO PALLIATIVE CARE BUT FIRST WANT TO SPEAK WITH ADMINISTRATIVE STAFF AT [facility]. CALLED JOSEFINA AT [facility] AND DETAILED REQUEST TO HER AND PROVIDED DR. DAWKINS'S # FOR [facility] TO CALL NEEDED. CALLED JOSEFINA AT [facility] AT 1230 WHO STATES [facility] DON CALLED DR. DAWKINS AND [facility] FINANCE PERSON TO CALL PT'S SON SOON. RN UPDATED. WILL FOLLOW.
--- NOTE | 2019-07-17 16:44 | NUR ---
FAXED CLINICAL UPDATE WITH CURRENT MED LIST TO [facility] SPOKE WITH JOSEFINA IN ADM SHE RECEIVED UPDATE. DCP TO FOLLOW.
--- NOTE | 2019-07-17 19:52 | NUR ---
PATIENT MORE RESPONSIVE TODAY, TRACKING BUT VERY WEAK. TOLERATING TUBE FEEDING. BUD IN AND UPDATED TO THE POC, REASSURANCE GIVEN TO PATIEN AND FAMILY.
[2019-07-18] VITALS (31 sets, daily range): BP systolic 91–114; BP diastolic 52–81
[2019-07-18 05:08] LABS: BE(vivo) 3.8 mmol/L (-2 to +3); HCO3 27.8 mmol/L (22.0-26.0); PCO2 39.2 mmHg (35.0-45.0); PO2 119.7 mmHg (80.0-100.0); pH 7.469 (7.360-7.450); sO2 98.5 % (92.0-98.0)
[2019-07-18 05:33] LABS: ABSOLUTE NEUTROPHILS 9.5 thou/uL (1.4-8.2); BASOPHILS 1.3 % (0.0-2.0); EOSINOPHILS 0.9 % (0.0-3.0); HEMOGLOBIN 7.6 gm/dL (12.0-15.0); LYMPHOCYTES 18.5 % (24.0-44.0); MCH 27.1 pg (26.0-34.0); MCHC 31.6 g/dL (28.0-37.0); MCV 85.9 fL (80.0-100.0); MONOCYTES 5.1 % (1.0-8.0); PLATELET COUNT 255 thou/uL (150-400); POLYS 74.2 % (36.0-66.0); RBC 2.79 mil/uL (4.20-5.00); RDW 20.2 % (10.5-14.5); WBC 12.8 thou/uL (4.0-11.0)
[2019-07-18 05:48] LABS: CALCIUM 9.4 mg/dL (8.5-10.1); CREATININE 1.2 mg/dL (0.6-1.0); POTASSIUM 4.4 mmol/L (3.5-5.1); TOTAL BILIRUBIN 0.4 mg/dL (<0.1-1.0); TOTAL PROTEIN 8.2 g/dL (6.4-8.2)
--- NOTE | 2019-07-18 18:00 | NUR ---
Patient intermittently awake, alert, attempts to mouth words. Nods yes/no appropriately at times. Patient appeared comfortable throughout the day. No anxiety/restlessness noted. Trach stable. Tolerating current ventilator settings; no changes. Respirations remain easy and unlabored; no acute distress noted. Continued IV ABX. VSS, see flowsheet; BP occasionally soft MAPs WDL. Remains atrial fib/flutter; rates controlled, IV amio infusing. NPO. TF at goal. Watchful of glucose remains hyperglycemic; consider adjustment already on HD SSI. Hu catheter patent to gravity. UO adequate. No family present. Snf care facility updated on patients current status. Continued frequent turning and repositioning; tolerating well. Continued progression towards current plan of care goals. No acute events to report.
[2019-07-19] VITALS (26 sets, daily range): BP systolic 70–121; BP diastolic 40–84
--- NOTE | 2019-07-19 06:34 | NUR ---
Pt awake and restless for most of the night. PRN fentanyl given frequently and pt able to rest more comfortably. VS stable and SpO2 adequate on current vent settings. Urine output adequate for shift and TF rate decreased for high residuals last pm. No labs ordered for this am, continue with POC.
--- NOTE | 2019-07-19 17:34 | NUR ---
ON THE VENT PER TRACH, VITALS STABLE. ON AMIO GTT AND STARTED ON DIG FOR HR CONTROL. MEDICATED FOR PAIN WITH PRN MEDS. TOLERATING TUBEFEEDING PER PEG WITH MIN RESIDUALS. MOVED TO RM 240 DUE TO PLUMBING ISSUES IN RM 238. CONTINUE TO POC.
[2019-07-20] VITALS (25 sets, daily range): BP systolic 73–111; BP diastolic 39–74
--- NOTE | 2019-07-20 06:19 | NUR ---
PT ON AND OFF AMIODARONE DRIP THROUGHTOUT THE NIGHT DUE TO HR AROUND LOW 50'S AND BP AROUND LOW 70'S. PT'S VITAL SIGNS STABLE THIS AM. PT TOLERATING TUBE FEED. PT POSSIBLY TRANSFERRING TO [facility] TODAY.
[2019-07-20] MEDS ORDERED: LOPRESSOR25 PO (08:37)
[2019-07-20] MEDS ORDERED: OMEPRAZOLE 20 M20 M1 PER TUBE (08:38)
[2019-07-20] MEDS ORDERED: DEMADEX20 MG PO (08:38)
[2019-07-20] MEDS ORDERED: NYAMYC15 GM TOP (08:39)
--- NOTE | 2019-07-20 10:40 | NUR ---
FOLLOWING FOR DC PLANNING. PT IS OFF AMIO GTT, REMAINS ON IV LEVAQUIN DAILY. DISCUSSED WITH JOSEFINA IN ADMISSIONS AT [facility]. PT IS NO LONGER APPROPRIATE FOR [facility] SIDE OF [facility], WILL PLAN RETURN TO LTC SIDE. DR. DAWKINS UPDATED. DC ORDERS AND DC SUMMARY NOTED AND FAXED TO [facility] ADMISSIONS. [facility] SET FOR 1400 WIRELESS CONSULTANT. CHART COPY REQUESTED. MESSAGE LEFT FOR NO LEÓN WITH DETAILS OF DISCHARGE AND CM CONTACT #. RN UPDATED.
--- NOTE | 2019-07-20 11:55 | NUR ---
WOUND CARE left heel ulcer remains necrotic,non viable tissue, entire wound bed eschar, cleansed w/ ns, painted w/ betadine swab, left open to air, pressure relief boots in place, buttocks rash healed, antifungal cream applied for protection, aadc plans staff officer infomred of care recommendations; cont same care
--- NOTE | 2019-07-20 14:05 | NUR ---
REPORT CALLED TO [facility] IN REGARDS TO THE PT. KITCHEN CLEANER VENT PT WHO RESIDES AT [facility]. WOUND CARE DONE TO LEFT HEEL PRIOR TO TRANSFER PICTURE TAKEN AND PAINTED WITH BETADINE. NO ISSUES OR CONCERNS NOTED AT THIS TIME. VITALS STABLE.
== END 2019-07-20 14:10 | DRG 870 ==
LOC: ER 00:33 → EROBS 02:41 → ICU 02:41
PROVIDERS: Emergency Medicine; Hospitalist; Internal Medicine; Internal Medicine Pulmonary Disease; Nurse Practitioner; Nurse Practitioner Acute Care; Pediatrics; ADMIT Hospitalist
PROC: 5A1955Z Respiratory Ventilation, Greater than 96 Consecutive Hours (ICD-10-PCS; principal; 2019-07-09)
PROC: 05HY33Z Insertion of Infusion Device into Upper Vein, Percutaneous Approach (ICD-10-PCS; principal; 2019-07-09)
PROC: 30233N1 Transfusion of Nonautologous Red Blood Cells into Peripheral Vein, Percutaneous Approach (ICD-10-PCS; 2019-07-10)
DX: A41.50 Gram-negative sepsis, unspecified (principal); G92 Toxic encephalopathy; R65.21 Severe sepsis with septic shock; R53.2 Functional quadriplegia; J96.21 Acute and chronic respiratory failure with hypoxia; I50.23 Acute on chronic systolic (congestive) heart failure; J18.9 Pneumonia, unspecified organism; E87.1 Hypo-osmolality and hyponatremia; N17.9 Acute kidney failure, unspecified; Z99.11 Dependence on respirator [ventilator] status; D62 Acute posthemorrhagic anemia; I48.92 Unspecified atrial flutter; E87.2 Acidosis; D68.59 Other primary thrombophilia; E46 Unspecified protein-calorie malnutrition; N39.0 Urinary tract infection, site not specified; E87.5 Hyperkalemia; E03.9 Hypothyroidism, unspecified; E11.9 Type 2 diabetes mellitus without complications; I11.0 Hypertensive heart disease with heart failure; G71.00 Muscular dystrophy, unspecified; J32.2 Chronic ethmoidal sinusitis; I48.2 Chronic atrial fibrillation; L89.629 Pressure ulcer of left heel, unspecified stage; B35.6 Tinea cruris; F32.9 Major depressive disorder, single episode, unspecified; J45.909 Unspecified asthma, uncomplicated; I95.9 Hypotension, unspecified; Y95 Nosocomial condition; N30.90 Cystitis, unspecified without hematuria; I25.10 Atherosclerotic heart disease of native coronary artery without angina pectoris; I25.5 Ischemic cardiomyopathy; G70.00 Myasthenia gravis without (acute) exacerbation; E87.6 Hypokalemia; B96.4 Proteus (mirabilis) (morganii) as the cause of diseases classified elsewhere; R19.7 Diarrhea, unspecified; I08.1 Rheumatic disorders of both mitral and tricuspid valves; B37.9 Candidiasis, unspecified; E66.01 Morbid (severe) obesity due to excess calories; Z51.5 Encounter for palliative care; Z79.899 Other long term (current) drug therapy; Z93.1 Gastrostomy status; Z93.0 Tracheostomy status; Z90.49 Acquired absence of other specified parts of digestive tract; Z87.440 Personal history of urinary (tract) infections; Z68.32 Body mass index [BMI] 32.0-32.9, adult; Z79.01 Long term (current) use of anticoagulants; Z87.01 Personal history of pneumonia (recurrent)
CPT/HCPCS: 10078; 10203; 85076